=== PATIENT | male | born 1990 | race Caucasian/White ===

== ENCOUNTER 2017-02-10 17:13 | Emergency (ER) | payer BC ==
[~2017-02-10] VITALS: Ht 177.8 cm; Wt 68.0 kg
[~2017-02-10 17:13] MED LIST: CEPHALEXIN500 M1 PO; KEPPRA500 MG PO
[2017-02-10] MEDS ORDERED: NORCO 5-325 TA1 EACH PO (18:25)
== END 2017-02-10 19:39 | disposition home or self-care (01) ==
LOC: ED 17:13
PROC: 2W3QX1Z Immobilization of Right Lower Leg using Splint (ICD-10-PCS; principal; 2017-02-10)
DX: S82.61XA Displaced fracture of lateral malleolus of right fibula, initial encounter for closed fracture (principal); F17.200 Nicotine dependence, unspecified, uncomplicated; W00.0XXA Fall on same level due to ice and snow, initial encounter
CPT/HCPCS: 29515; 73610; 99283

== ENCOUNTER 2017-02-21 06:50 | Day surgery (SDC) | payer BC ==
[~2017-02-21] VITALS: Ht 177.8 cm; Wt 68.0 kg
[~2017-02-21 06:50] MED LIST changes: +NORCO 5-325 TA1 EACH PO
[2017-02-21] MEDS ORDERED: HYDROCODON-ACE1 EA11 PO (09:20)
--- NOTE | 2017-02-26 11:28 | OR ---
[facility] [address], [place] [address] Signed DATE OF OPERATION: 02/21/2017 SURGEON: Franc Clements MD PREOPERATIVE DIAGNOSIS: Ankle fracture, unstable right. POSTOPERATIVE DIAGNOSIS: Ankle fracture, unstable right. PROCEDURE PERFORMED: Open reduction and internal fixation, right ankle. SOCIAL WORKER PALLIATIVE CARE: Marisol Bird PA-C. Marisol was present for the entire procedure, was critical for positioning, retraction, and wound closure. ANESTHESIA: General. TOURNIQUET TIME: 30 minutes. IMPLANTS: Arthrex 3 x 130 FibuLock with two 2.7 screws. BRIEF HISTORY: Dorothy is a 26-year-old gentleman, who slipped on the ice and had an unstable ankle fracture. He had pain over the deltoid ligament and slight lateral subluxation. Risks and benefits of operative treatment discussed with him, he elected to proceed. DESCRIPTION OF PROCEDURE: Once consent was obtained, he was taken to the operating room. After adequate anesthesia, he was placed on the operating room table. All downside pressure points were well padded. A well padded proximal leg tourniquet was placed. The leg was then prepped and draped in the standard sterile fashion and exsanguinated using Esmarch bandage. Tourniquet inflated to 250 mmHg. The center of the fibula was marked and 1 cm incision was made distally over the tip. Blunt dissection was taken down to the tip. The short K-wire was then introduced from the tip of the fibula engaging the canal of the fibula. This was then reamed using the 6 mm reamer. This was exchanged for a Electronically Signed By: FRANC CLEMENTS MD 02/22/17 0751 Electronically Signed By: FRANC CLEMENTS MD 02/26/17 1128 PATIENT NAME: DOROTHY OVALLE OPERATIVE REPORT DATE OF : 88 PHYSICIAN: FRANC CLEMENTS MD REPORT #: [id number] REPORT IS CONFIDENTIAL AND NOT TO BE RELEASED WITHOUT AUTHORIZATION [facility] [address] [place] [address] Signed longer K-wire and this was taken up the shaft to the fibula. Prior to this, we did make 2 stab incisions and put a clamp on the fibula to reduce it and hold it in an anatomic reduction. The 3.2 mm reamer was then placed over the guidewire and used to ream the shaft. Good cortical chatter was obtained. The 3 x 130 was then placed through the distal fibula engaging the body of the fibula and tapped until it was well seated. Once this was completed, the clamp was removed across the fracture and the 2 distal locking screws were placed through separate stab incisions. Excellent cortical purchase was obtained. Prior to this, we did engage the leaflets proximally. The wounds were then copiously irrigated with antibiotic solution, closed with liliya and he was dressed with Mepilex Ag dressing, ABD and placed back in his boot. He tolerated the procedure well. All sponge, needle, and instrument counts were correct. Franc Clements MD BA/NATALIIAL /[id number] Electronically Signed By: FRANC CLEMENTS MD 02/22/17 0751 Electronically Signed By: FRANC CLEMENTS MD 02/26/17 1128 PATIENT NAME: VALENTINE OVALLEYanci RENE OPERATIVE REPORT DATE OF : 88 PHYSICIAN: FRANC CLEMENTS MD REPORT #: [id number] REPORT IS CONFIDENTIAL AND NOT TO BE RELEASED WITHOUT AUTHORIZATION
== END 2017-02-21 13:20 | disposition home or self-care (01) ==
LOC: DS 06:50
PROVIDERS: Specialist
PROC: 0QSJ04Z Reposition Right Fibula with Internal Fixation Device, Open Approach (ICD-10-PCS; principal; 2017-02-21 08:15)
DX: S82.64XA Nondisplaced fracture of lateral malleolus of right fibula, initial encounter for closed fracture (principal); G40.409 Other generalized epilepsy and epileptic syndromes, not intractable, without status epilepticus; Z98.890 Other specified postprocedural states
CPT/HCPCS: 01480; 64445; 73600; 76942; C1713; J0690; J1100; J1885; J2250; J2405; J2704; J2765; J3010; J7120

== ENCOUNTER 2018-02-25 15:14 | Emergency (ER) | payer BC ==
[~2018-02-25] VITALS: Ht 177.8 cm; Wt 68.0 kg
[~2018-02-25 15:14] MED LIST changes: +HYDROCODON-ACE1 EA11 PO
[2018-02-25] MEDS ORDERED: KEPPRA500 MG PO (16:54)
== END 2018-02-25 17:15 | disposition home or self-care (01) ==
LOC: ED 15:14
DX: G40.909 Epilepsy, unspecified, not intractable, without status epilepticus (principal); S01.81XA Laceration without foreign body of other part of head, initial encounter; F17.200 Nicotine dependence, unspecified, uncomplicated; Z88.8 Allergy status to other drugs, medicaments and biological substances; W18.2XXA Fall in (into) shower or empty bathtub, initial encounter
CPT/HCPCS: 70450; 80053; 85025; 96365; 96375; 99284-25; J1953; J2405; J7060

== ENCOUNTER 2018-03-14 12:46 | Emergency (ER) | payer BC ==
[~2018-03-14] VITALS: Ht 177.8 cm; Wt 68.0 kg
--- OUTSIDE RECORDS SUMMARY | 2018-03-14 12:50 | XMS ---
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 Jovani VISIT COUNT (12 MO.) 2 [facility] TOTAL 2 NOTE: Visits indicate total known visits. ED/UCC VISIT TRACKING (12 MO.) 03/14/2018 12:47 [facility] [place] TYPE: Emergency COMPLAINT: - POSS EPILEPTIC EPISODE 02/25/2018 15:[address] [facility] [place] TYPE: Emergency COMPLAINT: - SEIZURE DIAGNOSES: - Unspecified convulsions - Fall in (into) shower or empty bathtub, initial encounter - Epilepsy, unspecified, not intractable, without status epilepticus - Nicotine dependence, unspecified, uncomplicated - Allergy status to other drugs, medicaments and biological substances status - Laceration without foreign body of other part of head, initial encounter INPATIENT VISIT TRACKING (12 MO.) No inpatient visits to display in this time frame [id number]
== END 2018-03-14 13:08 | disposition home or self-care (01) ==
LOC: ED 12:46
DX: R56.9 Unspecified convulsions (principal)

== ENCOUNTER 2018-06-15 12:13 | Emergency (ER) | payer OTHER, BC ==
[~2018-06-15] VITALS: Ht 177.8 cm; Wt 68.0 kg
--- OUTSIDE RECORDS SUMMARY | 2018-06-15 12:16 | XMS ---
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 Care History Medical/Surgical 03/15/2018 [facility] - PATIENT MISSED APT TO ESTABLISH CARE WITH DR DUNLAP ON 12/29/17. - [facility]W CALLED PATIENT AND LEFT A VOICEMAIL. - CHW SENT PATIENT NO PCP LETTER. E.D. VISIT COUNT (12 MO.) 3 [facility]. TOTAL 3 NOTE: Visits indicate total known visits. ED/UCC VISIT TRACKING (12 MO.) 06/15/2018 12:13 [facility] [place] TYPE: Emergency COMPLAINT: - HEAD INJURY/POSS SEIZURE 03/14/2018 12:47 [facility] [place] TYPE: Emergency COMPLAINT: - POSS EPILEPTIC EPISODE DIAGNOSES: - Unspecified convulsions 02/25/2018 15:15 [facility] [place] TYPE: Emergency COMPLAINT: - SEIZURE DIAGNOSES: [...] visits to display in this time frame [id number]
[2018-06-15] MEDS ORDERED: KEPPRA500 MG PO (13:53)
== END 2018-06-15 15:01 | disposition home or self-care (01) ==
LOC: ED 12:13
DX: G40.409 Other generalized epilepsy and epileptic syndromes, not intractable, without status epilepticus (principal); S01.511A Laceration without foreign body of lip, initial encounter; S00.03XA Contusion of scalp, initial encounter; F17.200 Nicotine dependence, unspecified, uncomplicated; Z88.8 Allergy status to other drugs, medicaments and biological substances; Z79.899 Other long term (current) drug therapy; W19.XXXA Unspecified fall, initial encounter
CPT/HCPCS: 70450; 70486; 72125; 80053; 82150; 82550; 83690; 85025; 86850; 86900; 86901; 96374; 99291; G0390; G0480; J1953; J7060

== ENCOUNTER 2018-07-04 11:27 | Emergency (ER) | payer OTHER, BC ==
[~2018-07-04] VITALS: Ht 177.8 cm; Wt 63.5 kg
--- OUTSIDE RECORDS SUMMARY | 2018-07-04 11:30 | XMS ---
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 Care History Medical/Surgical 03/15/2018 [facility] - PATIENT MISSED APT TO ESTABLISH CARE WITH DR DUNLAP ON 12/29/17. - [facility]W CALLED PATIENT AND LEFT A VOICEMAIL. - CHW SENT PATIENT NO PCP LETTER. E.D. VISIT COUNT (12 MO.) 4 [facility] TOTAL 4 NOTE: Visits indicate total known visits. ED/UCC VISIT TRACKING (12 MO.) 07/04/2018 11:27 [facility] TYPE: Emergency COMPLAINT: - R ANKLE PAIN/INJURY 06/15/2018 12:13 [facility] TYPE: Emergency COMPLAINT: - HEAD INJURY/POSS SEIZURE DIAGNOSES: - Laceration without foreign body of lip, initial encounter - Unspecified convulsions - Other residential (current) drug therapy - Other generalized epilepsy and epileptic syndromes, not intractable, without status epilepticus - Unspecified fall, initial encounter - Nicotine dependence, unspecified, uncomplicated - Allergy status to other drugs, medicaments and biological substances status - Contusion of scalp, initial encounter 03/14/2018 12:47 [facility] [place] TYPE: Emergency [...] visits to display in this time frame [id number]
[2018-07-04] MEDS ORDERED: KEFLEX500 MG PO (12:08)
== END 2018-07-04 13:00 | disposition home or self-care (01) ==
LOC: ED 11:27
DX: S91.031A Puncture wound without foreign body, right ankle, initial encounter (principal); F17.200 Nicotine dependence, unspecified, uncomplicated; Z88.8 Allergy status to other drugs, medicaments and biological substances; W45.8XXA Other foreign body or object entering through skin, initial encounter
CPT/HCPCS: 73610; 99283; 99406

== ENCOUNTER 2018-07-23 16:54 | Emergency (ER) | payer BC ==
[~2018-07-23] VITALS: Ht 177.8 cm; Wt 63.5 kg
[~2018-07-23 16:54] MED LIST changes: +KEFLEX500 MG PO
--- OUTSIDE RECORDS SUMMARY | 2018-07-23 16:56 | XMS ---
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 Care History Medical/Surgical 03/15/2018 [facility] - PATIENT MISSED APT TO ESTABLISH CARE WITH DR DUNLAP ON 12/29/17. - [facility]W CALLED PATIENT AND LEFT A VOICEMAIL. - CHW SENT PATIENT NO PCP LETTER. E.D. VISIT COUNT (12 MO.) 5 [facility] TOTAL 5 NOTE: Visits indicate total known visits. ED/UCC VISIT TRACKING (12 MO.) 07/23/2018 16:54 [facility] [place] TYPE: Emergency COMPLAINT: - SEIZURE 07/04/2018 11:27 [facility] TYPE: Emergency COMPLAINT: - R ANKLE PAIN/INJURY DIAGNOSES: - Unspecified injury of right ankle, initial encounter - Nicotine dependence, unspecified, uncomplicated - Allergy status to other drugs, medicaments and biological substances status - Other foreign body or object entering through skin, initial encounter - Puncture wound without foreign body, right ankle, initial encounter 06/15/2018 12:13 [facility] [place] TYPE: Emergency COMPLAINT: - HEAD INJURY/POSS SEIZURE DIAGNOSES: - Laceration without foreign body of lip, initial encounter - Unspecified convulsions - Other group home (current) drug therapy - Other generalized epilepsy [...] visits to display in this time frame [id number]
[2018-07-23] MEDS ORDERED: KEPPRA500 MG PO (17:03)
== END 2018-07-23 18:25 | disposition home or self-care (01) ==
LOC: ED 16:54
DX: G40.909 Epilepsy, unspecified, not intractable, without status epilepticus (principal); F17.200 Nicotine dependence, unspecified, uncomplicated; Z88.8 Allergy status to other drugs, medicaments and biological substances
CPT/HCPCS: 80048; 96374; 99284-25; J1953; J7060